=== PATIENT | female | born 1980 | race Caucasian/White ===

== ENCOUNTER 2020-09-09 05:45 | Inpatient (IN) ==
[2020-09-09] MEDS ORDERED: BUTORPHANOL 2 MG/ML VIAL IV PRN (05:56)
[2020-09-09] MEDS ORDERED: LACTATED RINGERS 500 ML IV PRN (05:56)
[2020-09-09] MEDS ORDERED: MEPERIDINE 50 MG/1 ML VIAL IV PRN (05:56)
[2020-09-09] MEDS ORDERED: ONDANSETRON 4 MG/2 ML VIAL IV PRN ×2 (05:56→16:43)
[2020-09-09] MEDS ORDERED: OXYTOCIN/LR 20 UNIT/1,000 ML BAG IV SCH (06:30)
[2020-09-09] MEDS: LACTATED RINGERS 1,000 ML IV SCH ×3 (06:31→17:48)
[2020-09-09 06:40] LABS: Basophils # 0.1 10*3/uL (0.0-0.2); Basophils % 0.6 % (0.0-0.8); Eosinophils # 0.4 10*3/uL (0.0-0.87); Eosinophils % 3.2 % (0.00-10.9); Hematocrit 34.2 VOL% (35.7-47.0); Hemoglobin 10.8 GM/DL (12.0-16.0); Immature Granulocytes % 1.4 %; Immature Granulocytes Absolute 0.18 #; Lymphocytes # 2.4 10*3/uL (1.4-4.0); Lymphocytes % 19.6 % (21.3-54.2); Mean Corpuscular HGB Conc 31.6 GM/DL (32-36); Mean Corpuscular Volume 84.2 FL (87-102); Mean Platelet Volume 10.1 FL (9.6-12.0); Monocytes % 6.2 % (1.7-12.7); Platelet Count 224 T/CUMM (130-400); Red Blood Count 4.06 MC/CUMM (3.8-5.5); Red Cell Distribution Width 13.9 % (9.3-17.3); White Blood Count 12.4 T/CUMM (4-12)
[2020-09-09 07:03] LABS: Alanine Aminotransferase 22 U/L (13-56); Albumin 2.6 G/DL (3.4-5.0); Alkaline Phosphatase 143 U/L (45-117); Aspartate Amino Transferase 20 U/L (0-37); Bilirubin,Total < 0.39 MG/DL (0.2-1.0); Blood Urea Nitrogen 12 MG/DL (7-18); Calcium 8.5 MG/DL (8.5-10.1); Carbon Dioxide 20 MMOL/L (21-32); Estimated Glom Filtration Rate 116 ML/MIN; Glucose 92 MG/DL (74-106); Potassium 3.9 MMOL/L (3.5-5.1); Sodium 136 MMOL/L (136-145)
[2020-09-09] MEDS ORDERED: hydrOXYzine HCL 25 MG/1 ML VIAL IM PRN (07:35)
[2020-09-09] MEDS ORDERED: NALOXONE 0.4 MG/ML VIAL IV PRN (07:35)
[2020-09-09] MEDS ORDERED: LACTATED RINGERS 1,000 ML IV PRN (07:35)
[2020-09-09] MEDS ORDERED: PROMETHAZINE 25 MG/1 ML VIAL IM ONE (07:35)
[2020-09-09] MEDS ORDERED: CITRIC ACID/SODIUM CITRATE 30 ML UDCUP PO ONE (07:35)
[2020-09-09] MEDS ORDERED: FAMOTIDINE 20 MG/2 ML VIAL IV ONE (07:35)
[2020-09-09] MEDS ORDERED: diphenhydrAMINE 50 MG/1 ML VIAL IV PRN ×2 (07:35)
[2020-09-09] MEDS ORDERED: fentaNYL 2 MCG/ROPIV 0.2% EPID 100 ML EPIDURAL SCH (08:00)
[2020-09-09] MEDS ORDERED: ePHEDrine 50 MG/ML VIAL ONE (09:09)
[2020-09-09 13:07] LABS: Bilirubin,Urine Negative (Negative); Blood, Urine Negative (Negative); Glucose,Urine (UA) Negative (Negative); Ketones,Urine Negative (Negative); Mucus,Urine Occasional /LPF (Occasional); Nitrite,Urine Negative (Negative); Protein,Urine Negative; Urine Appearance CLEAR (Clear); Urine Color Straw (Yellow); Urine Specific Gravity 1.006 (1.001-1.035); Urine Urobilinogen < 2.0 EU/DL (0.2-1.0)
[2020-09-09] MEDS ORDERED: OXYTOCIN/LR 20 UNIT/1,000 ML BAG IV ONE ×2 (15:18→16:43)
[2020-09-09] MEDS ORDERED: miSOPROStoL 200 MCG TABLET ONE (15:18)
[2020-09-09] MEDS ORDERED: CARBOPROST TROMETHAMINE 250 MCG/ML AMP IM ONE (15:18)
[2020-09-09] MEDS ORDERED: TRANEXAMIC ACID 1,000 MG/10 ML VIAL ONE (15:18)
[2020-09-09] MEDS ORDERED: METHYLERGONOVINE 0.2 MG/1 ML AMP ONE (15:18)
[2020-09-09 16:18] LABS: Cord Arterial Blood HCO3 25.5 MMOL/L
[2020-09-09 16:19] LABS: Cord Venous Blood HCO3 21.6 MMOL/L; Cord Venous Blood PCO2 38.4 MMHG; Cord Venous Blood PO2 36.3
[2020-09-09] MEDS ORDERED: oxyCODONE/ACETAMINOPHEN 5-325 MG TABLET PO PRN ×2 (16:43)
[2020-09-09] MEDS ORDERED: RHO(D) IMMUNE GLOBULIN 300 MCG SYRINGE IM ONE (16:43)
[2020-09-09] MEDS ORDERED: LANOLIN 50% CREAM 0.3 OZ TUBE TOP PRN (16:43)
[2020-09-09] MEDS ORDERED: BENZOCAINE 20%/MENTHOL 0.5% SPRAY 56 GM CAN TOP PRN (16:43)
[2020-09-09] MEDS ORDERED: HYDROCORTISONE 2.5% RECTAL CREAM 30 GM TUBE TOP PRN (16:43)
[2020-09-09] MEDS ORDERED: MEASLES/MUMPS/RUBELLA VACCINE 0.5 ML VIAL SUBCUT ONE (16:43)
[2020-09-09] MEDS ORDERED: BISACODYL 10 MG SUPP RECTAL PRN (16:43)
[2020-09-09] MEDS ORDERED: ACETAMINOPHEN 325 MG TABLET PO PRN (16:43)
[2020-09-09] MEDS ORDERED: DIPH/TET/ACEL PERT BOOSTER VACCINE 0.5 ML VIAL IM ONE (16:43)
[2020-09-09] MEDS ORDERED: WITCH HAZEL PADS 100/JAR TOP PRN (16:43)
[2020-09-09] MEDS: IBUPROFEN 800 MG TABLET PO PRN (19:17)
[2020-09-09] MEDS: DOCUSATE SODIUM 100 MG CAPSULE PO SCH (21:11)
[2020-09-10 05:33] LABS: Basophils # 0.1 10*3/uL (0.0-0.2); Basophils % 0.4 % (0.0-0.8); Eosinophils # 0.2 10*3/uL (0.0-0.87); Eosinophils % 1.3 % (0.00-10.9); Hematocrit 34.2 VOL% (35.7-47.0); Hemoglobin 10.8 GM/DL (12.0-16.0); Immature Granulocytes % 0.7 %; Immature Granulocytes Absolute 0.12 #; Lymphocytes # 2.1 10*3/uL (1.4-4.0); Lymphocytes % 12.9 % (21.3-54.2); Mean Corpuscular HGB Conc 31.6 GM/DL (32-36); Mean Corpuscular Volume 82.8 FL (87-102); Mean Platelet Volume 10.8 FL (9.6-12.0); Monocytes % 5.7 % (1.7-12.7); Platelet Count 196 T/CUMM (130-400); Red Blood Count 4.13 MC/CUMM (3.8-5.5); Red Cell Distribution Width 14.2 % (9.3-17.3); White Blood Count 16.3 T/CUMM (4-12)
[2020-09-10] MEDS: DOCUSATE SODIUM 100 MG CAPSULE PO SCH ×2 (07:27→20:24)
[2020-09-10] MEDS: IBUPROFEN 800 MG TABLET PO PRN ×2 (10:05→20:24)
[2020-09-11] MEDS: DOCUSATE SODIUM 100 MG CAPSULE PO SCH (09:35)
[2020-09-11 13:32] VITALS: BP 122/71
== END 2020-09-11 13:38 | disposition home or self-care (01) | DRG 807 ==
LOC: N.LD 05:45 → N.OB 21:25
PROVIDERS: ADMIT Specialist; ATTEND Specialist